=== PATIENT | male | born 1975 | race Caucasian/White ===

== ENCOUNTER 2016-10-12 12:02 | Emergency (ER) | payer OTHER ==
[~2016-10-12 12:02] MED LIST: NO MEDICATIONS; VOLTAREN50 MG PO
== END 2016-10-12 12:05 | disposition home or self-care (01) ==
LOC: CFTX 12:02
DX: M79.662 Pain in left lower leg (principal); R03.0 Elevated blood-pressure reading, without diagnosis of hypertension; Z98.890 Other specified postprocedural states
CPT/HCPCS: 99282